=== PATIENT | female | born 1990 | race Caucasian/White ===

== ENCOUNTER 2024-01-23 05:35 | Inpatient (IN) | payer BC ==
[2024-01-23] MEDS: ELECTROLYTE-148 SOLN 1,000 ML IV SCH ×2 (06:20→09:50)
[2024-01-23 06:32] VITALS: BMI 26.2
[2024-01-23 06:41] LABS: BASO % 0.3 % (0-2.0); EOS % 0.2 % (0-4.5); HEMATOCRIT 32.9 % (32.4-45.2); HEMOGLOBIN 11.3 GM/dL (10.7-15.3); LYMPH % 12.3 % (8-40); MCH 31.1 pg (25.7-33.7); MCHC 34.2 g/dl (32.0-36.0); MEAN CELL VOLUME 90.8 fl (80-96); MEAN PLT VOLUME 7.4 fl (7.5-11.1); MONO % 4.2 % (3.8-10.2); PLATELET COUNT 214 10^3/uL (134-434); RBC 3.62 M/mm3 (3.60-5.2); WHITE BLOOD COUNT 12.3 K/mm3 (4.0-10.0)
[2024-01-23 06:48] LABS: INR 0.85 (0.83-1.09); PROTHROMBIN TIME (PATIENT) 9.7 SEC (9.7-13.0)
[2024-01-23 06:51] LABS: ACTIVATED PTT 27.1 SECONDS (25.2-36.5)
[2024-01-23 07:09] LABS: POTASSIUM 4.2 mmol/L (3.5-5.1)
[2024-01-23 07:11] LABS: CALCIUM 8.8 mg/dL (8.5-10.1)
[2024-01-23 07:14] LABS: CREATININE 0.5 mg/dL (0.55-1.3)
[2024-01-23] MEDS ORDERED: OXYTOCIN 30 UNITS in 0.9% NS 30 UNIT/500 ML INFUS.BAG IVPB ONE (07:18)
[2024-01-23] MEDS: OXYTOCIN 30 UNITS in 0.9% NS 30 UNIT/500 ML INFUS.BAG IVPB SCH (07:25)
[2024-01-23] MEDS ORDERED: FENTANYL/BUPIVACAINE/NS/PF - PCEA - 50 ML DISP.SYRIN EP ONE ×2 (08:15→13:11)
[2024-01-23] MEDS: FENTANYL/BUPIVACAINE/NS/PF - PCEA - 50 ML DISP.SYRIN EP SCH (08:35)
[2024-01-23] MEDS ORDERED: NALOXONE HCL 0.4 MG/ML VIAL IVPUSH PRN (08:44)
[2024-01-23] MEDS ORDERED: OXYTOCIN 20 UNITS in 0.9% NS 20 UNIT/1,000 ML INFUS.BAG IV ONE (12:38)
[2024-01-23] MEDS ORDERED: LIDOCAINE HCL 1% PRESERVATIVE FREE - 30ML VIAL ONE (12:39)
[2024-01-23] MEDS: OXYTOCIN 20 UNITS in 0.9% NS 20 UNIT/1,000 ML INFUS.BAG IV SCH (14:18)
[2024-01-23] MEDS ORDERED: METHYLERGONOVINE MALEATE 0.2 MG/1 ML AMP IM PRN (14:36)
[2024-01-23] MEDS ORDERED: BISACODYL 10 MG SUPP.RECT RC PRN (14:36)
[2024-01-23] MEDS ORDERED: ACETAMINOPHEN 325 MG TABLET (FP) PO PRN (14:36)
[2024-01-23 15:11] LABS: CORD HCO3 19.1 mmHg (20-29); CORD PCO2 54.3 mmHg (30-78); CORD pH 7.164 (7.14-7.44)
[2024-01-23 15:12] LABS: CORD HCO3 19.7 mmHg (20-29); CORD PCO2 47.9 mmHg (30-78); CORD pH 7.231 (7.14-7.44)
[2024-01-23] MEDS: IBUPROFEN 600 MG TABLET (FP) PO PRN (16:58)
[2024-01-23] MEDS: BENZOCAINE 20% 57 GM BOTTLE TP PRN (19:36)
[2024-01-23] MEDS: BENZOCAINE 28 GM HEMORRHOIDAL OINTMENT TP PRN (19:37)
[2024-01-23] MEDS: oxyCODONE HCL 5 MG TABLET PO PRN (19:38)
[2024-01-23 21:29] VITALS: RESP 18
[2024-01-24 07:39] LABS: BASO % 0.2 % (0-2.0); EOS % 0.3 % (0-4.5); HEMATOCRIT 28.4 % (32.4-45.2); HEMOGLOBIN 9.6 GM/dL (10.7-15.3); LYMPH % 13.7 % (8-40); MCH 31.2 pg (25.7-33.7); MCHC 33.8 g/dl (32.0-36.0); MEAN CELL VOLUME 92.2 fl (80-96); MEAN PLT VOLUME 7.7 fl (7.5-11.1); MONO % 5.4 % (3.8-10.2); NEUT % 80.4 % (42.8-82.8); PLATELET COUNT 174 10^3/uL (134-434); RBC 3.08 M/mm3 (3.60-5.2); RDW 13.5 % (11.6-15.6); WHITE BLOOD COUNT 13.6 K/mm3 (4.0-10.0)
[2024-01-24] MEDS: SENNOSIDES/DOCUSATE COMBO (SENNA PLUS) TABLET (UD) PO PRN (20:59)
[2024-01-24] MEDS: WITCH HAZEL 50% (TUCKS) 40 PAD/JAR PAD TP PRN (21:00)
[2024-01-24 21:43] VITALS: PULSE 82; TEMP 97.9
[2024-01-25 10:19] VITALS: BP 115/70
== END 2024-01-25 12:45 | disposition home or self-care (01) | DRG 807 ==
LOC: JLDR 05:35 → J3W 16:40
PROVIDERS: ADMIT Obstetrics & Gynecology; ATTEND Obstetrics & Gynecology
PROC: 10E0XZZ Delivery of Products of Conception, External Approach (ICD-10-PCS; principal; 2024-01-23)
PROC: 0W8NXZZ Division of Female Perineum, External Approach (ICD-10-PCS; 2024-01-23)
DX: O42.92 Full-term premature rupture of membranes, unspecified as to length of time between rupture and onset of labor (principal); Z37.0 Single live birth; Z3A.39 39 weeks gestation of pregnancy
CPT/HCPCS: 36415; 36600; 59409; 80048; 82803; 85025; 85610; 85730; 86780; 86850; 86900; 86901